=== PATIENT | male | born 1995 | race Caucasian/White ===

== ENCOUNTER 2017-03-16 17:25 | Emergency (ER) | payer OTHER ==
[2017-03-16 17:32] VITALS: TEMP 97.7
--- NOTE | 2017-03-16 18:30 | EDPHY ---
H & P Time Seen by Provider: 03/16/17 18:14 HPI/ROS: Chief complaint. Shortness of breath, fatigue HPI. 21-year-old male presents with 2 day history of fatigue, shortness of breath, dizziness. It began yesterday. 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 No chest discomfort. No fever or cough. Last night he felt like his heart was beating faster than usual. No abdominal pain or vomiting or diarrhea. No unusual leg pain swelling. No similar symptoms previously ROS Constitutional. Fatigue Eyes. no problems with vision ENT. no sore throat, no nasal drainage Cardiovascular. no chest pain Respiratory. Shortness of breath Abdominal. no abdominal pain, no nausea/vomiting, no diarrhea . no problems urinating MS. no calf pain/swelling, no neck/back pain, no joint pain Skin. no rash Lymph. no swollen glands Neuro. no headache, no dizziness, no difficulty walking or with speech Past Medical/Surgical History: Healthy Social History: Single, nonsmoker, no alcohol Smoking Status: Never smoked Physical Exam: General Appearance: Alert well-developed male mild distress vital signs are stable Eyes: Pupils equal and round no pallor or injection. ENT, Mouth: Mucous membranes are moist. Respiratory: There are no retractions, lungs are clear to auscultation. Cardiovascular: Regular rate and rhythm. Gastrointestinal: Abdomen is soft and nontender, no masses, bowel sounds normal. Neurological: Awake and alert, sensory and motor exams grossly normal. Skin: Warm and dry, no rashes. Musculoskeletal: Neck is supple nontender. Extremities symmetrical, full range of motion. Psychiatric: Patient is oriented X 3, there is no agitation. Constitutional: Initial Vital Signs Temperature (C) 36.5 C 03/16/17 17:29 Heart Rate 57 L 03/16/17 17:29 Respiratory Rate 14 03/16/17 17:29 Blood Pressure 138/88 H 03/16/17 17:29 O2 Sat (%) 97 03/16/17 17:29 O2 Delivery Mode Room Air Allergies/Adverse Reactions: No Known Allergies Allergy (Unverified 03/16/17 17:31) Medical Decision Making - Diagnostics EKG Interpretation: EKG interpreted by me shows normal sinus rhythm with first-degree AV block. Normal axis. QRS is normal there is no significant ST elevation or depression. No arrhythmia. The rate is 50 Imaging Results: Imaging Impressions Chest X-Ray 03/16/17 18:40 Impression: Normal. Procedures: IV normal saline, monitor ED Course/Re-evaluation: Re-evaluation 8:15 p.m.--the patient is stable. He and I discussed imaging and lab results. We discussed EKG findings. We discussed treatment plan including criteria for return importance of follow-up. The patient is here from [place] and is leaving tomorrow or Saturday to return to [place]. We will give him copies of his labs, x-ray, EKG and he is encouraged to follow up upon return Differential Diagnosis: I considered pulmonary embolus, pneumonia, cardiac arrhythmia, acute coronary syndrome - Data Points Laboratory Results: Laboratory Results 03/16/17 18:59 03/16/17 18:59 03/16/17 03/16/17 03/16/17 18:59 18:59 18:59 WBC 5.28 10^3/uL 10^3/uL (3.80-9.50) RBC 5.58 10^6/uL 10^6/uL (4.40-6.38) Hgb 15.5 g/dL g/dL (13.7-17.5) Hct 44.4 % % (40.0-51.0) MCV 79.6 fL L fL (81.5-99.8) MCH 27.8 pg L pg (27.9-34.1) MCHC 34.9 g/dL g/dL (32.4-36.7) RDW 11.9 % % (11.5-15.2) Plt Count 168 10^3/uL 10^3/uL (150-400) MPV 10.0 fL fL (8.7-11.7) Neut % (Auto) 71.3 % % (39.3-74.2) Lymph % (Auto) 19.7 % % (15.0-45.0) Mckinley % (Auto) 8.0 % % (4.5-13.0) Eos % (Auto) 0.6 % % (0.6-7.6) Baso % (Auto) 0.2 % L % (0.3-1.7) Nucleat RBC Rel Count 0.0 % % (0.0-0.2) Absolute Neuts (auto) 3.77 10^3/uL 10^3/uL (1.70-6.50) Absolute Lymphs (auto) 1.04 10^3/uL 10^3/uL (1.00-3.00) Absolute Monos (auto) 0.42 10^3/uL 10^3/uL (0.30-0.80) Absolute Eos (auto) 0.03 10^3/uL 10^3/uL (0.03-0.40) Absolute Basos (auto) 0.01 10^3/uL L 10^3/uL (0.02-0.10) Absolute Nucleated RBC 0.00 10^3/uL 10^3/uL (0-0.01) Immature Gran % 0.2 % % (0.0-1.1) Immature Gran # 0.01 10^3/uL 10^3/uL (0.00-0.10) D-Dimer < 0.27 ug/mLFEU ug/mLFEU (0.00-0.50) Sodium 139 mEq/L mEq/L (134-144) Potassium 5.0 mEq/L mEq/L (3.5-5.2) Chloride 100 mEq/L mEq/L (97-110) Carbon Dioxide 27 mEq/l mEq/l (22-31) Anion Gap 12 mEq/L mEq/L (8-16) BUN 22 mg/dL mg/dL (7-23) Creatinine 1.0 mg/dL mg/dL (0.7-1.3) Estimated GFR > 60 Glucose 80 mg/dL mg/dL (70-100) Calcium 9.7 mg/dL mg/dL (8.5-10.4) Creatine Kinase 132 IU/L IU/L (0-224) Troponin I < 0.012 ng/mL ng/mL (0.000-0.034) Medications Given: Discontinued Medications Sodium Chloride (Ns) 1,000 mls @ 0 mls/hr IV EDNOW ONE; Wide Open PRN Reason: Protocol Stop: 03/16/17 18:41 Last Admin: 03/16/17 18:58 Dose: 1,000 mls Departure - Departure Disposition: Home, Routine, Self-Care Clinical Impression: Dyspnea Qualifiers: Dyspnea type: dyspnea on exertion Qualified Code(s): R06.09 - Other forms of dyspnea Condition: Good Instructions: Dyspnea (ED) Additional Instructions: Easy activity. Regular meals and hydration. Get plenty of sleep. Return for worsening breathing, fatigue. Follow up with physician upon return home to [place] Referrals: NONE *PRIMARY CARE P,. [Primary Care Provider] - As per Instructions
[2017-03-16] MEDS ORDERED: NS 1,000 ML IV ONE (18:40)
--- NOTE | 2017-03-16 19:03 | CPEKG ---
Heart Rate: 50 RR Interval: 1200 P-R Interval: 284 QRSD Interval: 102 QT Interval: 448 QTC Interval: 409 P Drummonds: 83 QRS Drummonds: 117 T Wave Drummonds: 10 EKG Severity - ABNORMAL ECG - EKG Impression: SINUS RHYTHM EKG Impression: FIRST DEGREE AV BLOCK EKG Impression: RIGHT AXIS DEVIATION Electronically Signed By: Tra Ram 16-Mar-2017 23:37:35
[2017-03-16 19:11] LABS: % IMMATURE GRANULYOCYTES 0.2 % (0.0-1.1); ABSOLUTE IMMATURE GRANULOCYTES 0.01 10^3/uL (0.00-0.10); ADD DIFF? NO; ADD MORPH? NO; ADD SCAN? NO; ATYPICAL LYMPHOCYTE FLAG 20 (0-99); FRAGMENT RBC FLAG 0 (0-99); HEMATOCRIT 44.4 % (40.0-51.0); HEMOGLOBIN 15.5 g/dL (13.7-17.5); LEFT SHIFT FLG 0 (0-99); LIPEMIA HEMOLYSIS FLAG 90 (0-99); MEAN CELL HEMOGLOBIN 27.8 pg (27.9-34.1); MEAN CELL HEMOGLOBIN CONCENTR. 34.9 g/dL (32.4-36.7); MEAN CELL VOLUME 79.6 fL (81.5-99.8); PLATELET CLUMPS FLAG 10 (0-99); PLATELET COUNT 168 10^3/uL (150-400); RED BLOOD CELL COUNT 5.58 10^6/uL (4.40-6.38); RED CELL DISTRIBUTION WIDTH 11.9 % (11.5-15.2)
[2017-03-16 19:22] LABS: ANION GAP 12 mEq/L (8-16); CALCIUM 9.7 mg/dL (8.5-10.4); CARBON DIOXIDE 27 mEq/l (22-31); CHLORIDE 100 mEq/L (97-110); GLOMERULAR FILTRATION RATE > 60; GLUCOSE 80 mg/dL (70-100); SODIUM 139 mEq/L (134-144)
[2017-03-16 19:33] LABS: TROPONIN I < 0.012 ng/mL (0.000-0.034)
[2017-03-16 20:50] VITALS: BP 105/69; PULSE 51; RESP 16; O2SAT 99
== END 2017-03-16 20:47 | disposition home or self-care (01) ==
DX: R06.09 Other forms of dyspnea (principal); E86.9 Volume depletion, unspecified